=== PATIENT | male | born 1975 | race Caucasian/White ===

== ENCOUNTER 2018-03-27 14:11 | Emergency (ER) | payer MEDICAID ==
[~2018-03-27] VITALS: Ht 177.8 cm; Wt 92.3 kg
[2018-03-27] MEDS ORDERED: IBUPROFEN 600 MG TABLET PO ONE (16:45)
[2018-03-27] MEDS ORDERED: SULFAMETHOX/TRIMETH DS 800-160 MG/TABLET PO ONE (16:45)
[2018-03-27] MEDS ORDERED: CEPHALEXIN MONOHYDRATE 500 MG CAPSULE PO ONE (16:45)
[2018-03-27 16:55] VITALS: BP 136/87
== END 2018-03-27 17:20 | disposition home or self-care (01) ==
LOC: EMS 14:14
DX: M70.21 Olecranon bursitis, right elbow (principal); M25.421 Effusion, right elbow; M79.642 Pain in left hand; Y93.55 Activity, bike riding
CPT/HCPCS: 99284